=== PATIENT | male | born 1985 | race African-American/Black ===

== ENCOUNTER 2017-08-08 11:57 | Emergency (ER) | payer SELFPAY | END 2017-08-08 12:56 | disposition home or self-care (01) | LOC: EDH 11:57 | DX: K04.7 Periapical abscess without sinus (principal); Z72.0 Tobacco use ==

== ENCOUNTER 2017-09-04 13:07 | Emergency (ER) | payer SELFPAY ==
[2017-09-04] MEDS ORDERED: FLUORESCEIN SODIUM 0.6 MG STRIP ONE (13:30)
[2017-09-04] MEDS ORDERED: TETRACAINE HCL 0.5% 4 ML OPHTH SOLN ONE (13:30)
== END 2017-09-04 14:05 | disposition home or self-care (01) ==
LOC: EDH 13:07
DX: T15.82XA Foreign body in other and multiple parts of external eye, left eye, initial encounter (principal); Z72.0 Tobacco use; X58.XXXA Exposure to other specified factors, initial encounter; Y93.89 Activity, other specified; Y92.89 Other specified places as the place of occurrence of the external cause; Y99.8 Other external cause status

== ENCOUNTER 2017-10-18 23:55 | Emergency (ER) | payer SELFPAY ==
[2017-10-19] MEDS ORDERED: TETANUS/DIPHTHERIA TOXOID [ADULT] 0.5 ML VIAL IM ONE (00:31)
[2017-10-19] MEDS ORDERED: CEPHALEXIN 500 MG CAPSULE ONE (00:47)
== END 2017-10-19 01:29 | disposition home or self-care (01) ==
LOC: EDH 23:55
DX: S61.412A Laceration without foreign body of left hand, initial encounter (principal); Z72.0 Tobacco use; W26.0XXA Contact with knife, initial encounter; Y93.89 Activity, other specified; Y92.098 Other place in other non-institutional residence as the place of occurrence of the external cause; Y99.8 Other external cause status
CPT/HCPCS: 12041; 73130; 90471; 90714

== ENCOUNTER 2020-10-22 12:09 | Emergency (ER) | payer OTHER ==
[2020-10-22] MEDS ORDERED: KETOROLAC TROMETHAMINE 30MG/ML ONE (14:29)
== END 2020-10-22 15:21 | disposition home or self-care (01) ==
LOC: EDH 12:09
DX: S83.401A Sprain of unspecified collateral ligament of right knee, initial encounter (principal); X50.1XXA Overexertion from prolonged static or awkward postures, initial encounter; Y93.67 Activity, basketball; Y92.89 Other specified places as the place of occurrence of the external cause; Y99.8 Other external cause status
CPT/HCPCS: 73562; 96372; 99283; J1885